=== PATIENT | female | born 1980 | race Caucasian/White ===

== ENCOUNTER 2017-04-04 11:49 | Emergency (ER) | payer OTHER ==
--- NOTE | 2017-04-04 13:17 | RAD ---
INDICATION: Lower right rib pain after a fall COMPARISON: None. TECHNIQUE: 3 views of the right ribs were obtained. FINDINGS: A metallic external marker is seen overlying the lower right lateral ribs. No fracture or significant focal osseous abnormality is seen. No pneumothorax is apparent. Limited views demonstrate grossly clear lungs. IMPRESSION: No radiographically apparent displaced rib fracture or pneumothorax. If the patient's symptoms persist, follow-up imaging is recommended.
--- NOTE | 2017-04-04 13:18 | RAD ---
HISTORY: foreign body left anterior temporal fossa COMPARISONS: None VIEWS: 4, Frontal, lateral, and oblique views of the left elbow FINDINGS: BONE DENSITY: Normal. BONES: There is no displaced fracture. JOINTS: There is no arthropathy. ALIGNMENT: There is no dislocation. SOFT TISSUES: Unremarkable. OTHER FINDINGS: There is a 1.2 cm radiopaque foreign body in the soft tissues along the anterior aspect of the antecubital fossa. IMPRESSION: 1.2 CM RADIOPAQUE FOREIGN BODY IN THE SOFT TISSUES ALONG THE ANTECUBITAL FOSSA.
[2017-04-04 13:55] VITALS: BP 111/62
--- NOTE | 2017-04-04 13:55 | ED ---
Back Pain - HPI Summary HPI Summary: Patient presents to the ED with CC of right rib pain after falling this morning into the bathroom sink faucet. She endorses 9/10 pain, constant and worse with movement and better with rest. She has not taken anything for the pain. She is also stating she was using cocaine this morning and injecting into the left antecubital when the needle broke off this morning. She denies pain in the left arm and is able to have full ROM without pain. Denies other pain or symptoms. Denies RUGGIERO or LOC after fall. - History of Current Complaint Chief Complaint: EDChestWallPain Stated Complaint: FALL/RT RIB PAIN Time Seen by Provider: 04/04/17 12:17 Hx Obtained From: Patient Onset/Duration: Sudden Onset Timing: Constant Back Pain Location: Is Discrete @ - right lower ribs Severity Initially: Moderate Severity Currently: Moderate Pain Intensity: 9 Pain Scale Used: 0-10 Numeric Character: Aching Aggravating Symptom(s): Movement Alleviating Symptom(s): Rest, Position Associated Signs And Symptoms: Positive: Redness, Bruising - Risk Factors AAA Risk Factors: Negative TAD Risk Factors: Negative Cauda Equina Risk Factors: Negative Epidural Abscess Risk Factors: Negative - Allergies/Home Medications Allergies/Adverse Reactions: Allergies Allergy/AdvReac Type Severity Reaction Status Date / Time No Known Drug Allergy Allergy NONE Verified 01/25/16 06:19 PMH/Surg Hx/FS Hx/Imm Hx Previously Healthy: Yes Endocrine/Hematology History: Reports: Hx Thyroid Disease - NO MEDICATIONS AT THIS TIME History: Reports: Other Problems/Disorders - FREQUENT UTI Sensory History: Reports: Hx Contacts or Glasses - CONTACTS Denies: Hx Hearing Aid Opthamlomology History: Reports: Hx Contacts or Glasses - CONTACTS Psychiatric History: Reports: Hx Anxiety - NO MEDICATIONS - Surgical History Surgery Procedure, Year, and Place: TEETH EXTRACTIONS A CHILD Hx Anesthesia Reactions: No - Immunization History Hx Pertussis Vaccination: No Immunizations Up to Date: Unable to Obtain/Confirm Infectious Disease History: No Infectious Disease History: Denies: Traveled Outside the [place] in Last 30 Days - Social History Occupation: Unemployed Lives: Alone Alcohol Use: Occasionally Hx Substance Use: Yes Substance Use Type: Reports: Cocaine Substance Use Comment - Amount & Last Used: daily/ today Smoking Status (MU): Light Every Day Tobacco Smoker Amount Used/How Often: 1PPD Review of Systems Constitutional: Negative Negative: Fever, Chills, Fatigue Eyes: Negative Cardiovascular: Negative Respiratory: Negative Genitourinary: Negative Positive: no symptoms reported, see HPI Positive: Arthralgia - right rib pain Positive: Other - track mejia and bruises to the bilateral AC's Neurological: Negative All Other Systems Reviewed And Are Negative: Yes Physical Exam Triage Information Reviewed: Yes Vital Signs On Initial Exam: Initial Vitals Temp Pulse Resp BP Pulse Ox 97.8 F 104 20 130/87 100 04/04/17 11:51 04/04/17 11:51 04/04/17 11:51 04/04/17 11:51 04/04/17 11:51 Vital Signs Reviewed: Yes Appearance: Positive: Well-Appearing, Well-Nourished Skin: Positive: Warm, Skin Color Reflects Adequate Perfusion, Other - track mejia and bruising to the bilateral AC's Head/Face: Positive: Normal Head/Face Inspection Eyes: Positive: EOMI, BEBA, Conjunctiva Clear Neck: Positive: Supple, No Lymphadenopathy Respiratory/Lung Sounds: Positive: Clear to Auscultation, Breath Sounds Present Cardiovascular: Positive: RRR, Pulses are Symmetrical in both Upper and Lower Extremities Musculoskeletal: Positive: Pain @ - right ribs Neurological: Positive: Speech Normal Psychiatric: Positive: Normal AVPU Assessment: Alert - [place] Coma Scale Coma Scale Total: 15 Diagnostics - Vital Signs Vital Signs Temp Pulse Resp BP Pulse Ox 04/04/17 11:51 97.8 F 104 20 130/87 100 - Laboratory Lab Statement: Any lab studies that have been ordered have been reviewed, and results considered in the medical decision making process. Back Pain Course/Dx - Course Course Of Treatment: Patient is evaluated for right rib pain and needle to the L AC which broke off this morning. IMPRESSION: 1.2 CM RADIOPAQUE FOREIGN BODY IN THE SOFT TISSUES ALONG THE ANTECUBITAL FOSSA. Ribs without acute fracture or other findings. She is encouraged to follow up with surgery to have the needle removed. She agrees. Ibuprofen 600mg three times daily for rib contusion. - Diagnoses Differential Diagnosis/HQI/PQRI: Positive: Other - rib contusion, FB in soft tissue Provider Diagnoses: Soft tissues foreign body, Contusion of rib on right side Discharge - Discharge Plan Condition: Stable Disposition: HOME Patient Education Materials: Soft Tissue Foreign Body (ED) Referrals: Mark Clifford MD [Medical Doctor] - Miles Ashford MD [Primary Care Provider] - Additional Instructions: please follow up with Dr. Clifford Call office today for an appt This is non-emergent, but still needs to be taken care of Ibuprofen 600mg three times daily for rib contusion Moist heat to the area
== END 2017-04-04 13:55 | disposition home or self-care (01) ==
LOC: ED 11:49
DX: S20.211A Contusion of right front wall of thorax, initial encounter (principal); F17.210 Nicotine dependence, cigarettes, uncomplicated; W19.XXXA Unspecified fall, initial encounter; Y93.9 Activity, unspecified; Y92.9 Unspecified place or not applicable; Y99.9 Unspecified external cause status
CPT/HCPCS: 99282

== ENCOUNTER 2017-04-08 10:28 | Emergency (ER) | payer OTHER ==
[2017-04-08 10:48] VITALS: BP 120/74
--- NOTE | 2017-04-08 11:29 | ED ---
Skin Complaint - HPI Summary HPI Summary: Pt here w/ Lt AC fossa FB retention - attempted to inject cocaine into vein here 5 days ago but she fell during the process and needle broke off into her arm. Was seen here for XR which confirmed presence of needle and pt was d/c'd w / advice to f/u outpt with general surgery. She missed both of her appts due to "oversleeping". She is scheduled to go into a rehabilitation program tomorrow and would like to get this out ORION to be able to make her scheduled rehab admission time. Denies fever, chills, N/V/D, redness, swelling, streaking or pain at all. Needs needle removed per rehab facility as they are concerned this could form an abscess or other medical issue while she's there. - History of Current Complaint Chief Complaint: EDGeneral Time Seen by Provider: 04/08/17 10:52 Stated Complaint: NEEDLE IN LEFT ARM NEEDS REMOVED Hx Obtained From: Patient, Family/Drycleaner - father Pain Intensity: 5 - Allergy/Home Medications Allergies/Adverse Reactions: Allergies Allergy/AdvReac Type Severity Reaction Status Date / Time No Known Drug Allergy Allergy NONE Verified 01/25/16 06:19 PMH/Surg Hx/FS Hx/Imm Hx Previously Healthy: No - cocaine addiction Endocrine/Hematology History: Reports: Hx Thyroid Disease - NO MEDICATIONS AT THIS TIME History: Reports: Other Problems/Disorders - FREQUENT UTI Sensory History: Reports: Hx Contacts or Glasses - CONTACTS Denies: Hx Hearing Aid Opthamlomology History: Reports: Hx Contacts or Glasses - CONTACTS Psychiatric History: Reports: Hx Anxiety - NO MEDICATIONS, Hx Substance Abuse - cocaine - injects - Surgical History Surgery Procedure, Year, and Place: TEETH EXTRACTIONS A CHILD Hx Anesthesia Reactions: No Infectious Disease History: No Infectious Disease History: Denies: Traveled Outside the [place] in Last 30 Days - Family History Known Family History: Positive: None - Social History Lives: Alone Alcohol Use: Occasionally Hx Substance Use: Yes Substance Use Type: Reports: Cocaine Hx Tobacco Use: Yes Smoking Status (MU): Light Every Day Tobacco Smoker Amount Used/How Often: 1PPD Review of Systems Constitutional: Negative Cardiovascular: Negative Gastrointestinal: Negative Positive: no symptoms reported Musculoskeletal: Negative Skin: Other - healing track mejia over site on Lt AC fossa Neurological: Negative Psychological: Normal All Other Systems Reviewed And Are Negative: Yes Physical Exam Triage Information Reviewed: Yes Vital Signs On Initial Exam: Initial Vitals Temp Pulse Resp BP Pulse Ox 97.4 F 69 18 120/74 100 04/08/17 10:45 04/08/17 10:45 04/08/17 10:45 04/08/17 10:45 04/08/17 10:45 Vital Signs Reviewed: Yes Appearance: Positive: Well-Appearing - subtle tremor but pleasant and appears well otherwise, No Pain Distress, Thin Skin: Positive: Warm, Dry - healing superficial scabbing over Lt AC vessels - no erythema, no ecchymosis, no edema no streaking; palpable thin firm FB parallel to vessel however dives into tissue closer to vessel; no edema Head/Face: Positive: Normal Head/Face Inspection Eyes: Positive: EOMI ENT: Positive: Hearing grossly normal Respiratory/Lung Sounds: Positive: Breath Sounds Present Cardiovascular: Positive: Pulses are Symmetrical in both Upper and Lower Extremities - no edema Musculoskeletal: Positive: Normal, Strength/ROM Intact Neurological: Positive: Normal, Sensory/Motor Intact, Alert, Oriented to Person Place, Time, CN Intact II-III Psychiatric: Positive: Normal - [place] Coma Scale Coma Scale Total: 15 Diagnostics - Vital Signs Vital Signs Temp Pulse Resp BP Pulse Ox 04/08/17 10:45 97.4 F 69 18 120/74 100 - Laboratory Lab Statement: Any lab studies that have been ordered have been reviewed, and results considered in the medical decision making process. Course/Dx - Course Course Of Treatment: Called BIOLOGICAL SCIENCE TECHNICIAN Gen Surgery outpt office - pt offered appt at 10 :45am tomorrow -she agrees to go. Suggested father who is present w/ her today also make sure she attend to a) remove FB which is not healthy to remain in body for length of time, b) as removing this will allow pt to start rehab and c ) to prevent missing more appts w/ BIOLOGICAL SCIENCE TECHNICIAN Gen surg and risking her status for care as she already has 2 no-show appts. Pt and father agree w/ plan. - Diagnoses Provider Diagnoses: Retained foreign body of upper extremity Discharge - Discharge Plan Condition: Stable Disposition: HOME Patient Education Materials: Eye Foreign Body (ED) Referrals: Aubrey Stanford MD [Medical Doctor] - Additional Instructions: GO TO APPOINTMENT TOMORROW MORNING 04/09/2017 AT 10:45 AM FOR REMOVAL OF FOREIGN BODY (NEEDLE) IN LEFT UPPER EXTREMITY
== END 2017-04-08 11:40 | disposition home or self-care (01) ==
LOC: ED 10:28
DX: M79.5 Residual foreign body in soft tissue (principal); F17.210 Nicotine dependence, cigarettes, uncomplicated; F14.20 Cocaine dependence, uncomplicated
CPT/HCPCS: 99281

== ENCOUNTER → 2018-03-29 18:01 | Emergency (ER) | payer OTHER ==
[~2018-03-29 18:01] MED LIST: Mouth Piece, Nicotine* 1 EACH CARTRIDGE INH PRN; Mouth Piece, Nicotine* 1 EACH CARTRIDGE ONE; Nicotine Inhaler* 10 MG AMP INH ONE; Nicotine Inhaler* 10 MG AMP ONE
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
--- NOTE | 2018-03-29 20:42 | RAD ---
EXAM: US Duplex Right Lower Extremity Veins CLINICAL HISTORY: 37 years old, female; Pain; Leg, lower; Right; Additional info: Right calf pain TECHNIQUE: Real-time duplex ultrasound scan of the right lower extremity veins integrating B-mode two-dimensional vascular structure, Doppler spectral analysis, color flow Doppler imaging and compression. COMPARISON: No relevant prior studies available. FINDINGS: Deep veins: Unremarkable. No DVT in the visualized common femoral, femoral, proximal deep femoral or popliteal veins. The veins demonstrate normal color flow, are normally compressible, with normal phasic flow and/or augmentation response. Superficial veins: Unremarkable. No thrombus in the visualized great saphenous vein. Soft tissues: No acute findings. No popliteal cyst. IMPRESSION: Normal right lower extremity duplex venous ultrasound. To contact [facility] with a general question: [facility] - [phone] For direct physician to physician contact: Physician Hotline - [phone] [facility] ([facility] Facility ID #[id number])
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
[2018-03-29 21:17] VITALS: BP 132/80
== END | disposition home or self-care (01) ==
LOC: ED 18:01
DX: S09.90XA Unspecified injury of head, initial encounter (principal); S09.93XA Unspecified injury of face, initial encounter; S30.811A Abrasion of abdominal wall, initial encounter; S60.512A Abrasion of left hand, initial encounter; S60.511A Abrasion of right hand, initial encounter; Y04.8XXA Assault by other bodily force, initial encounter; Y92.9 Unspecified place or not applicable; Y07.03 Male partner, perpetrator of maltreatment and neglect; M54.2 Cervicalgia; M79.661 Pain in right lower leg; F17.200 Nicotine dependence, unspecified, uncomplicated
CPT/HCPCS: 70450; 70486; 72125; 74176; 99283; A9270-GY

== ENCOUNTER 2020-07-20 14:37 | Inpatient (IN) ==
[2020-07-20] MEDS ORDERED: Nicotine PATCH 14 MG/24 HR PATCH TRANSDERM ONE (19:10)
[2020-07-20 19:23] LABS: Urine Appearance Clear; Urine Bilirubin Negative (Negative); Urine Blood Negative (Negative); Urine Color Yellow; Urine Glucose Negative (Negative); Urine Ketones Negative (Negative); Urine Nitrite Negative (Negative); Urine Protein Negative (Negative); Urine Specific Gravity 1.009 (1.010-1.030); Urine Urobilinogen Negative (Negative)
[2020-07-20 19:24] LABS: ABS Eosinophils 0.4 10^3/ul (0-0.6); ABS Lymphocytes 3.4 10^3/ul (1.0-4.8); ABS Monocytes 0.7 10^3/ul (0-0.8); ABS Neutrophils 5.3 10^3/ul (1.5-7.7); Eosinophil % 3.7 %; Hematocrit 40 % (35-47); Hemoglobin 14.1 g/dL (12.0-16.0); Lymphocyte % 34.6 %; Mean Corpuscular HGB Conc 35 g/dL (31-36); Mean Corpuscular Hemoglobin 31 pg (27-31); Mean Corpuscular Volume 87 fL (80-97); Mean Platelet Volume 9.3 fL (7.4-10.4); Platelet Count 248 10^3/uL (150-450); Red Blood Count 4.61 10^6 /uL (3.70-4.87); Red Cell Distribution Width 13 % (10-15); White Blood Count 9.8 10^3/uL (3.5-10.8)
[2020-07-20 19:47] LABS: ALT 11 U/L (7-52); AST 12 U/L (13-39); Albumin 4.9 g/dL (3.2-5.2); Albumin/Globulin Ratio 1.8 (1-3); Alkaline Phosphatase 49 U/L (34-104); Anion Gap 5 mmol/L (2-11); CO2 Carbon Dioxide 32 mmol/L (22-32); Calcium 10.3 mg/dL (8.6-10.3); Chloride 102 mmol/L (101-111); EGFR Non-African American 106.6 (>60); Globulin 2.7 g/dL (2-4); Glucose 84 mg/dL (70-100); Potassium 4.6 mmol/L (3.5-5.0); Sodium 139 mmol/L (135-145); Total Protein 7.6 g/dL (6.4-8.9)
[2020-07-20 19:48] LABS: Acetaminophen < 15 mcg/mL; Alcohol, S < 10 mg/dL (<10); Salicylate < 2.50 mg/dL (<30)
[2020-07-20 19:50] LABS: HCG Pregnancy < 0.60 mIU/mL
[2020-07-20 20:22] LABS: BUN/Creatinine Ratio 14.5 (8-20); Blood Urea Nitrogen 9 mg/dL (6-24); Urine Benzodiazepine Screen None Detected (None Detect); Urine Cannabinoids Screen None Detected (None Detect); Urine Opiates Screen None Detected (None Detect)
[2020-07-21] MEDS ORDERED: Al Hydrox/Mg Hydrox/Simet LIQ 30 ML UDC PO PRN (01:32)
[2020-07-21] MEDS ORDERED: Nicotine GUM 2MG FRUIT FLAVOR PO PRN (02:00)
[2020-07-21] MEDS: Nicotine PATCH 7 MG/24 HR PATCH TRANSDERM SCH (10:46)
[2020-07-21] MEDS: Vitamin THERAPEUTIC TAB PO SCH (10:49)
[2020-07-21 18:19] LABS: Urine Benzodiazepine Screen None Detected (None Detect); Urine Buprenorphine Screen Presumptive Positive (None Detect); Urine Cannabinoids Screen None Detected (None Detect); Urine Fentanyl Screen None Detected (None Detect); Urine Hydrocodone Screen None Detected (None Detect); Urine Opiates Screen None Detected (None Detect)
[2020-07-22 08:00] LABS: HDL Cholesterol 55.7 mg/dL
[2020-07-22] MEDS ORDERED: Influenza VAC *QUAD* 2020-21* 0.5 ML SYRINGE IM ONE (09:00)
[2020-07-22] MEDS: Vitamin THERAPEUTIC TAB PO SCH (09:23)
[2020-07-22] MEDS: Nicotine PATCH 7 MG/24 HR PATCH TRANSDERM SCH (10:28)
[2020-07-22 14:58] LABS: RPR Nonreactive (Nonreactive)
[2020-07-22] MEDS ORDERED: Nicotine GUM 4MG FRUIT FLAVOR PO PRN (15:00)
[2020-07-22] MEDS: Nicotine PATCH 21 MG/24 HR PATCH TRANSDERM SCH (16:00)
[2020-07-23] MEDS: Vitamin THERAPEUTIC TAB PO SCH (09:57)
[2020-07-23] MEDS: Nicotine PATCH 21 MG/24 HR PATCH TRANSDERM SCH (09:57)
[2020-07-23 16:37] LABS: Hepatitis B Surface Antigen Nonreactive (Nonreactive)
[2020-07-23 16:42] LABS: Hepatitis A Ab IgM Negative (Negative)
[2020-07-23 16:43] LABS: Hepatitis B Core IgM Nonreactive (Nonreactive)
[2020-07-23 16:54] LABS: Hepatitis C Antibody Negative (Negative)
[2020-07-23 20:56] LABS: HIV 4th Generation Nonreactive (Nonreactive)
[2020-07-24] MEDS: Nicotine PATCH 21 MG/24 HR PATCH TRANSDERM SCH (08:24)
[2020-07-24] MEDS: Vitamin THERAPEUTIC TAB PO SCH (08:26)
[2020-07-25 08:07] VITALS: BP 116/65
[2020-07-25] MEDS: Vitamin THERAPEUTIC TAB PO SCH (08:09)
[2020-07-25] MEDS: Nicotine PATCH 21 MG/24 HR PATCH TRANSDERM SCH (08:10)
[2020-07-25 13:42] LABS: Chlamydia trachomatis NAA Negative (Negative); Neisseria gonorrhoeae (GC) NAA Negative (Negative)
[2020-07-26 15:34] LABS: T.Pallidum TP-PA Negative (Negative)
== END 2020-07-25 15:43 | disposition home or self-care (01) | DRG 753 ==
LOC: ED 14:37 → BSU 23:06
PROVIDERS: ADMIT Psychiatry & Neurology Psychiatry; ATTEND Psychiatry & Neurology Psychiatry